=== PATIENT | male | born 1990 | race Caucasian/White ===

== ENCOUNTER 2020-12-28 16:56 | Emergency (ER) | payer BC ==
[~2020-12-28] VITALS: Ht 188 cm; Wt 103.9 kg
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
[2020-12-28 18:35] VITALS: BP 141/88
== END 2020-12-28 18:38 | disposition home or self-care (01) ==
LOC: ER 16:56
DX: S06.0X0A Concussion without loss of consciousness, initial encounter (principal); S40.011A Contusion of right shoulder, initial encounter; S00.83XA Contusion of other part of head, initial encounter; Z23 Encounter for immunization; V86.59XA Driver of other special all-terrain or other off-road motor vehicle injured in nontraffic accident, initial encounter; Y93.89 Activity, other specified; Y92.488 Other paved roadways as the place of occurrence of the external cause; Y99.8 Other external cause status
CPT/HCPCS: 70450; 70486; 99285-25